=== PATIENT | female | born 1945 | race African-American/Black ===

== ENCOUNTER 2018-09-10 21:05 | Inpatient (IN) | payer OTHER ==
[~2018-09-10] VITALS: Ht 162.6 cm; Wt 74.4 kg
[~2018-09-10 21:05] MED LIST: ACID CONTROLLER20 MG PO; ALEVE220 M1 PO; AMLODIPINE BESYL5 MG PO; BISACODYL SUPP10 MG RECTAL; BYSTOLIC10 MG PO; CARDIZEM CD120 MG PO; COLACE100 MG PO; COREG6.25 MG PO; COUMADIN 2.5MG2.5 M1 PO; COUMADIN 4 MG TA4 M1 PO; ELIQUIS5 MG PO; FLECAINIDE ACET50 M1 PO; GLUCOPHAGE1000 MG PO; HYDRALAZINE 2525 M1 PO; HYDROCHLOROTHIA25 M1 PO; JANUVIA25 MG PO; JANUVIA50 MG PO; LEVEMIR100 UNIT/1 SUBQ; LISINOPRIL40 MG PO; LORATIDINE 10 M10 M1 PO; LOVASTAT20; LOVASTAT20 PO; MAG-AL LIQUID30 ML PO; MEDROLDOSEPACK; NORCO 5-325 TA1 EACH PO; NORCO 7.5-3251 EACH PO; NOVOLIN 70100 UNIT/1 SUBQ; NOVOLIN 70100 UNIT/2 SQ; NOVOLOG MI100 UNIT/2 SUBQ; NOVOLOG100 UNIT/1; PERIDEX15 ML; PROPRANOLOL 20M20 M1 PO; PROPRANOLOL 4040 M1 PO; SENNA PO; SEROQUEL 12.512.5 MG PO; TRAMADOL 50 MG50 MG PO; TYLENOL325 MG PO; ZOCOR 10 MG TAB10 M1 PO; ZOFRAN4 MG PO; ZYRTEC10 M2 PO
[2018-09-10 21:47] LABS: HEMATOCRIT 32.6 % (37.0-47.0); HEMOGLOBIN 10.5 gm/dL (12.0-15.0); MCH 27.6 pg (26.0-34.0); MCHC 32.2 g/dL (28.0-37.0); MCV 85.5 fL (80.0-100.0); RBC 3.81 mil/uL (4.20-5.00); RDW 16.7 % (10.5-14.5); WBC 5.5 thou/uL (4.0-11.0)
[2018-09-10 21:54] LABS: CALCIUM 9.6 mg/dL (8.5-10.1); CREATININE 1.9 mg/dL (0.6-1.0)
[2018-09-10] MEDS ORDERED: DEMADEX20 MG PO (21:58)
[2018-09-10] MEDS ORDERED: ELIQUIS5 MG PO (22:01)
[2018-09-10] MEDS ORDERED: LIPITOR40 MG PO (22:02)
[2018-09-10] MEDS ORDERED: PROTONIX40 M1 PO (22:02)
[2018-09-10 22:03] LABS: TROPONIN-I 0.1 ng/mL (<0.06)
[2018-09-10] MEDS ORDERED: EFFEXOR XR37.5 MG PO (22:03)
[2018-09-10 23:06] LABS: URINE BILIRUBIN 1+ (Negative); URINE BLOOD NEGATIVE (Negative); URINE CLARITY SL CLOUDY; URINE COLOR YELLOW; URINE GLUCOSE-RANDOM* NEGATIVE (Negative); URINE KETONES NEGATIVE (Negative); URINE LEUKOCYTES-REFLEX TRACE (Negative); URINE NITRITE-REFLEX NEGATIVE (Negative); URINE PROTEIN (DIPSTICK) 3+ (Negative)
[2018-09-10 23:12] LABS: SQUAMOUS 0-3 Few /LPF (0-3); URINE RBC 0-2 Rare /HPF (0-2); WBC CLUMPS Few (None Seen)
[2018-09-10 23:13] LABS: BACTERIA-REFLEX >30 Many /HPF (None Seen); CRYSTALS None Seen /LPF (None Seen); HYALINE CASTS 4-10 Moderate /LPF (None Seen); MUCUS 0-3 Light strn/LPF (None Seen)
--- NOTE | 2018-09-11 07:43 | EKG ---
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1945 Requested By: Destin Richardson Order Number: [id number] MD: Jose Mills Measurements Intervals [place] Rate: 128 P: [place]: QRS: 9 QRSD: 90 T: 178 QT: 343 QTc: 501 Interpretive Statements Atrial fibrillation Poor R wave progression ST and T wave abnormality, consider lateral ischemia vs strain Prolonged QT interval Compared to ECG 07/01/2013 08:28:17 Prolonged QT interval now present Atrial fibrillation has replaced sinus rhythm ST and T wave abnormality is more pronounced Electronically Signed On 09-11-2018 7:43:02 CDT by Jose Mills [email or web address] ��������������������������������������������� <ELECTRONICALLY SIGNED> ���������������������������������������� By: Jose Mills MD, [facility] ��������������������������������������������� 09/11/18 0743 15 15 Jose Mills MD, [facility] /EPI
[2018-09-11 13:35] VITALS: BP 151/83
--- NOTE | 2018-09-11 14:40 | 2DMMODE ---
[facility] [place] [address] 2 D/M-MODE ECHOCARDIOGRAM Name: JUSTYN MEJÍA Room #: 213-P [facility] IN ..#: [id number] ������������� Admission: 09/10/18 ������������� Attend Phys: Finn Cheng, Discharge: ��� ������������� ��� Date of : 45 Date of Service: 09/11/18 1440 �� Report #: [id number] �������� ��������������������������������������������[id number] THIS REPORT FOR: //name// APPROVED REPORT Study performed: 09/11/2018 11:22:04 EXAM: Comprehensive 2D, Doppler, and color-flow Echocardiogram Patient Location: ER Room #: 14 BSA: 1.78 HR: 100 bpm BP: 146/97 mmHg Rhythm: Atrial Fibrillation Other Information Study Quality: Good Indications Diabetes Atrial Fibrillation Dyspnea Hypertension/HDD 2D Dimensions RVDd: 45.76 mm IVSd: 13.11 (7-11mm) LVOT Diam: 22.27 (18-24mm) LVDd: 39.59 mm PWd: 19.25 (7-11mm) Ascending Ao: 29.43 (22-36mm) LVDs: 34.37 (25-40mm) Aortic Root: 32.10 mm IVC: 27.00 mm Volumes Left Atrial Volume (Systole) Single Plane 4CH: 80.95 mL Single Plane 2CH: 86.30 mL LA ESV Index: 49.00 mL/m2 Aortic Valve AoV Peak Shaq.: 0.97 m/s AO Peak Gr.: 5.02 mmHg LVOT Max P.96 mmHg LVOT Max V: 0.49 m/s HUA Vmax: 1.95 cm2 Pulmonary Valve [facility] [address] [address] 2 D/M-MODE ECHOCARDIOGRAM Name: JUSTYN MEJÍA Room #: 213-P ADM IN [facility].#: [id number] ������������� Admission: 09/10/18 ������������� Attend Phys: Finn Cheng, Discharge: ��� ������������� ��� Date of : 45 Date of Service: 09/11/18 1440 �� Report #: [id number] �������� ��������������������������������������������[id number] PV Peak Shaq.: 0.63 m/s PV Peak Gr.: 1.58 mmHg Tricuspid Valve TR Peak Shaq.: 3.34 m/s TR Peak Gr.: 44.74 mmHg PA Pressure: 55.00 mmHg Left Ventricle The left ventricle is normal size. There is global hypokinesis of the left ventricle. Mild concentric left ventricular hypertrophy. Left ventricular ejection fraction is severely decreased. LVEF 25%. This study is not technically sufficient to allow evaluation of the LV diastolic function due to atrial fibrillation. Right Ventricle Right ventricle is dilated. Right ventricle is hypokinetic. Atria Left atrium is dilated. Right atrium is dilated. Aortic Valve The aortic valve is mildly calcified No aortic regurgitation is present. There is no aortic valvular stenosis. Mitral Valve The mitral valve is normal in structure. Mild mitral regurgitation. No evidence of mitral valve stenosis. Tricuspid Valve The tricuspid valve is normal in structure. There is mild to moderate tricuspid regurgitation. Estimated PAP 55 mmHg. There is moderate pulmonary hypertension. Pulmonic Valve The pulmonary valve is normal in structure. Trace pulmonic regurgitation. Great Vessels The aortic root is normal in size. IVC is dilated and collapses <50% with inspiration. Pericardium Small pericardial effusion. <Conclusion> [facility] [address] [place] [address] 2 D/M-MODE ECHOCARDIOGRAM Name: JUSTYN MEJÍA Room #: 213-[facility] IN .R.#: [id number] ������������� Admission: 09/10/18 ������������� Attend Phys: Finn Cheng, Discharge: ��� ������������� ��� Date of : 45 Date of Service: 09/11/18 1440 �� Report #: [id number] �������� ��������������������������������������������[id number] Left ventricular ejection fraction is severely decreased. LVEF 25%. Both atria are dilated. The aortic valve is mildly calcified. No aortic regurgitation or stenosis. The mitral valve is normal in structure. Mild mitral regurgitation. There is mild to moderate tricuspid regurgitation. Estimated pulmonary artery pressure of 55 mmHg. Small pericardial effusion. ��������������������������������������������� <ELECTRONICALLY SIGNED> ���������������������������������������� By: Jose Mills MD, [facility] ��������������������������������������������� 09/11/18 1440 144 1440 Jose Mills MD, [facility] /INF
[2018-09-11 16:57] VITALS: BP 108/97
--- NOTE | 2018-09-11 17:19 | NUR ---
ASSUMED CARE OF PT AT 1440 THIS SHIFT. PT HAS BEEN COOPERATIVE, HOWEVER VERY CONFUSED. PT IS DROWSY BUT EASILY AROUSABLE. PT STILL HAS AFIB WITH RVR, DILTIAZEM GTT NEEDED. PT HAS DENIED ANY PAIN THIS SHIFT. ASSESSMENTS ARE DOCUMENTED, PT IS CURRENTLY RESTING COMFORTABLY IN ROOM. PT HAS HAD VISITORS THIS SHIFT, EDUCATION WAS PROVIDED. PLAN OF CARE IS TO CONTINUE TO MONITOR CLOSELY AT THIS TIME.
[2018-09-11 19:44] VITALS: BP 152/96
[2018-09-12 00:09] LABS: PROT/CREAT RATIO 1.1; URINE CREATININE-RANDOM* 41.1 mg/dL; URINE PROTEIN-RANDOM* 45.2 mg/dL (<11.9)
[2018-09-12 00:45] VITALS: BP 122/72
[2018-09-12 04:19] LABS: CALCIUM 9.4 mg/dL (8.5-10.1); CREATININE 1.8 mg/dL (0.6-1.0); POTASSIUM 3.7 mmol/L (3.5-5.1)
[2018-09-12 04:23] VITALS: BP 134/91
--- NOTE | 2018-09-12 05:27 | NUR ---
PT AO X 1. DENIES PAIN. ELEVATED HR. CARDIZEM DRIP RESTARTED. HR CURRENTLY CONTROLED. NO BARCENAS PATENT (see I&O). DENIES NAUSEA . VOMITING OR DIARHEA. WILL CONTINUE TO FOLLOW POC.
[2018-09-12 07:40] VITALS: BP 134/74
--- NOTE | 2018-09-12 08:38 | EKG ---
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1945 Requested By: Jose Mills Order Number: [id number] MD: Jose Mills Measurements Intervals [place] Rate: 86 P: [place]: QRS: 22 QRSD: 83 T: 197 QT: 407 QTc: 487 Interpretive Statements Atrial fibrillation Abnormal T, consider ischemia, diffuse leads Compared to ECG 09/10/2018 21:16:58 Heart rate has slowed Electronically Signed On 09-12-2018 8:38:09 CDT by Jose Mills [email or web address] ��������������������������������������������� <ELECTRONICALLY SIGNED> ���������������������������������������� By: Jose Mills MD, [facility] ��������������������������������������������� 09/12/18 0838 0 0 Jose Mills MD, [facility] /EPI
[2018-09-12 12:49] VITALS: BP 120/66
[2018-09-12] MEDS ORDERED: CARVEDILOL25 MG PO (13:32)
[2018-09-12] MEDS ORDERED: COZAAR 25 MG TA25 M1 PO (13:33)
[2018-09-12 15:07] LABS: KAPPA FREE LIGHT CHAINS 64.1 mg/L (3.3-19.4); KAPPA/LAMBDA RATIO 1.77 (0.26-1.65); LAMBDA FREE LIGHT CHAINS 36.3 mg/L (5.7-26.3)
[2018-09-12 17:07] VITALS: BP 120/66
--- NOTE | 2018-09-12 17:31 | NUR ---
PATIENT ASSESSMENT CHARTED, ALERT AND ORIENTED X 1, CONFUSED, SLOW TO UNDERSTAND AND ANSWER QUESTIONS OR FOLLOW INSTRUCTIONS, VSS, NARINDER IRAHETA'Derian. PATIENT UP TO CHAIR FOR LUNCH, NEEDS ASSISTANCE TO EAT. DISCHARGE ORDERS RECEIVED. SON WILL WIRE TWISTER PATIENT AROUND 8:30 PM TO TAKE HOME. DISCHARGE PACKET HAS BEEN RUN.
[2018-09-12 20:20] VITALS: BP 153/87
--- NOTE | 2018-09-13 04:05 | NUR ---
RECEIVED PT'S CARE AT 1935; PT. ON BED SLEEPING; ORIENTED TO PERSON; HS MEDICATION GIVEN; RELATIVE ARRIVED AT 2029; FORMS SIGNED; D/C
--- NOTE | 2018-09-13 07:06 | NUR ---
PATIENT DISCHARGED PRIOR TO OT EVALUATION BEING INITIATED.
--- NOTE | 2018-09-13 10:08 | HC ---
[facility] [place] [address] CONSULTATION Name: KYMJUSTYN Olga Room #: 217-P [facility] IN M.R.#: [id number] Admission: 09/10/18 ������������������ Attend Phys: Finn Cheng, Discharge: 09/12/18 ������������������ Date of : 45 Report #: [id number] THIS REPORT FOR: //name// CC: Finn Mcghee DATE OF SERVICE: 09/11/2018 ATTENDING PHYSICIAN: Dr. Cheng. REASON FOR CONSULTATION: Chronic kidney disease. HISTORY OF PRESENT ILLNESS: The patient is known to our service and followed in our office with chronic kidney disease and atrial fibrillation. She has been slipping lately with more mental confusion than before and she came to the hospital. She was found to be in atrial fibrillation with rapid ventricular response and she was admitted. Creatinine is at 1.9, which I believe is relatively close to her baseline chronic kidney disease. PAST MEDICAL HISTORY: She has diabetes and hypertension. She had a gangrenous gallbladder with acute kidney injury 5 years ago requiring temporary dialysis at this hospital and requiring rehabilitation. HOME MEDICATIONS: Include carvedilol 12.5 mg b.i.d., famotidine, insulin, torsemide 20 mg daily, Eliquis 5 mg b.i.d., Protonix 40 mg daily, Lipitor 40 mg daily, Effexor XR 37.5 mg daily and NovoLog insulin. ALLERGIES: No known medical allergies. SOCIAL HISTORY: No cigarettes or alcohol. Lives at home with her family. REVIEW OF SYSTEMS: Very difficult review of systems due to the patient's compromised mental status. EYES: Vision seems to be okay. ENT: Hearing okay, seems to swallow okay. ENDOCRINE: Positive for the diabetes. RESPIRATORY: She says she is a bit short winded, but does not appear to be cardiac. She says she has some chest pain, but again appears to be in no distress. GASTROINTESTINAL: Denies nausea or vomiting. GENITOURINARY: Denies dysuria or hematuria. NEUROLOGIC: She obviously has the confusion as mentioned. PHYSICAL EXAMINATION: GENERAL: This is a chronically ill-appearing woman, in no acute distress. SKIN: Unremarkable. [facility] [address] [place] [address] CONSULTATION Name: JUSTYN MEJÍA Ol[place] Room #: 217-P [facility] IN M.R.#: [id number] Admission: 09/10/18 ������������������ Attend Phys: Finn Cheng DO Discharge: 09/12/18 ������������������ Date of : 45 Report #: [id number] SKELETAL: Well developed, well nourished. HEENT: Extraocular movements are full. Vision is intact. Hearing is intact. No scleral icterus. Mucous membranes are moist. Tongue, buccal mucosa benign. NECK: Supple without carotid bruits or lymphadenopathy. CHEST: Clear to auscultation. HEART: Irregularly irregular and somewhat rapid. ABDOMEN: Soft and nontender. EXTREMITIES: Show trace peripheral edema. Peripheral pulses are okay. LABORATORY DATA: Urinalysis did show 3+ protein. Hemoglobin 10.5, white count 5.5, platelets 182. Sodium 145, potassium 4, chloride 109, bicarbonate 27, BUN 40, creatinine 1.9. ASSESSMENT AND PLAN: 1. Chronic kidney disease. Known chronic kidney disease, likely seems close to baseline. 2. Atrial fibrillation with rapid ventricular response. 3. Heart failure with reduced ejection fraction, left ventricular ejection fraction only 25%. 4. Diabetes mellitus. 5. Proteinuria. We will quantitate and look at paraprotein studies. 6. History of gangrenous gallbladder, status post acute tubular necrosis with dialysis. ��������������������������������������������� <ELECTRONICALLY SIGNED> ���������������������������������������� By: Ran Jaramillo MD ��������������������������������������������� 09/13/18 1008 1752 2236 Ran Jaramillo MD /nt
== END 2018-09-12 21:09 | disposition home or self-care (01) | DRG 308 ==
LOC: ER 21:05 → 2N 23:37 → EROBS 23:37 → 2N 09-11 14:26
PROVIDERS: Emergency Medicine; Internal Medicine; Internal Medicine Nephrology; ADMIT Internal Medicine Geriatric Medicine
DX: I48.91 Unspecified atrial fibrillation (principal); I50.23 Acute on chronic systolic (congestive) heart failure; N17.9 Acute kidney failure, unspecified; N39.0 Urinary tract infection, site not specified; I13.0 Hypertensive heart and chronic kidney disease with heart failure and stage 1 through stage 4 chronic kidney disease, or unspecified chronic kidney disease; N18.4 Chronic kidney disease, stage 4 (severe); I42.9 Cardiomyopathy, unspecified; E11.22 Type 2 diabetes mellitus with diabetic chronic kidney disease; E78.5 Hyperlipidemia, unspecified; Z87.440 Personal history of urinary (tract) infections; Z79.01 Long term (current) use of anticoagulants; Z79.4 Long term (current) use of insulin; Z86.73 Personal history of transient ischemic attack (TIA), and cerebral infarction without residual deficits; Z90.49 Acquired absence of other specified parts of digestive tract; Z83.3 Family history of diabetes mellitus
CPT/HCPCS: 10081